=== PATIENT | female | born 1990 | race African-American/Black ===

== ENCOUNTER 2021-08-02 07:30 | Inpatient (IN) | payer OTHER ==
--- NOTE | 2021-07-25 12:12 | HPE ---
HISTORY AND PHYSICAL DATE OF ADMISSION: 08/07/2021 HISTORY OF PRESENT ILLNESS: This patient is a 30-year-old 2 para 1 admitted for elective repeat section with low-lying placenta on August 07, 2021. PAST HISTORY: She had a section at 40 plus 3 weeks of gestation, arrest of decent, livebirth female , 7 pounds, 14 ounces. She presently has had ongoing ultrasounds to evaluate the extent of the low-lying placenta and as of 36 weeks the margin on the os is 1.2 cm. Therefore, it was elected to go ahead and repeat the section. Her LMP was November 12, 2020, her EDC is August 13, 2021 by early dating ultrasound from January 09, 2021 at 8 weeks and 2 days. Her risk factors are: Repeat section and low-lying placenta. PHYSICAL EXAMINATION: On examination today, she is normocephalic, atraumatic. Neck: Full range of motion. Pupils equal and reactive to light. Distal pulses are symmetric. No evidence of DVT, PE or superficial phlebitis. Chest is clear bilaterally to bases. No wheezes or rhonchi. No CVA tenderness. Abdomen is soft, four quadrant bowel sounds are noted. Symphysis fundus height is appropriate. Low-transverse scar is not painful. No rashes, lesions or pruritus. No arthralgias or myalgias. No complaint of joint pain, no complaint of cough, wheeze, shortness of breath or dyspnea on exertion. No nausea, vomiting, diarrhea, or constipation. No urgency or frequency. Her blood pressure today is 113/59, respirations were 18, pulse is 72, her height is 67 cm, and her weight is 173 pounds. We discussed the risks and benefits of section including hemorrhage, infection, perforation, , re-operation, the risk of remote blood transfusion, remote hysterectomy for life-threatening bleeding issues, the risk of perforation of organs on entry secondary to adhesions. admission to NICU for observation. Patient expressed understanding of same, all questions were answered, a 20 minute discussion, plus 20 minute evaluation. Patient is going to get a note for her in order to assist her at home. She will mushroom picker her meds at [facility], have a COVID test prior to coming to the hospital. Expressed an understanding of same and went to mushroom picker the medications. Patient is booked for August 07, 2021. cc: Izaiah [facility]
[~2021-08-02] VITALS: Ht 170.2 cm; Wt 77.2 kg
[~2021-08-02 07:30] MED LIST: FERR325T81 PO; PRENTAB53 PO
[2021-08-07] VITALS (8 sets, daily range): BP systolic 102–125; BP diastolic 52–62
[2021-08-07] MEDS ORDERED: OXYTOCIN INJ 10 UNITS/ML VIAL (J2590) IV PRN (07:20)
[2021-08-07] MEDS ORDERED: METHYLERGONOVINE MALEATE 0.2 MG/ML VIAL (J2210) IM PRN (07:20)
[2021-08-07] MEDS ORDERED: LR 1,000 ML IV SCH ×3 (07:40→13:40)
[2021-08-07] MEDS ORDERED: ceFAZolin SOD 2 GM in IV 1 EA IV ONE (07:40)
[2021-08-07] MEDS ORDERED: BUPIVACAINE HCL 0.25% 10ML VIAL SC ONE (07:45)
[2021-08-07] MEDS ORDERED: AZITHROMYCIN INJ 500 MG, VIAL MATE ADAPTER 1 EACH in NS 250 ML IV SCH (07:45)
[2021-08-07] MEDS ORDERED: BICITRA 30ML SOLN UDC PO ONE (07:45)
[2021-08-07] MEDS ORDERED: HOME MED LIST COMPLETE! XX SCH (07:50)
[2021-08-07 08:27] LABS: HEMATOCRIT 30.7 % (36.0-47.0); HEMOGLOBIN 9.3 g/dl (12.0-15.5); MEAN CORPUSCULAR HEMOGLOBIN 26.7 pg (27.0-33.0); MEAN CORPUSCULAR HGB CONC 30.3 g/dl (32.0-36.5); MEAN CORPUSCULAR VOLUME 88.2 fl (80.0-96.0); PLATELET COUNT, AUTOMATED 278 10^3/uL (150-450); RED BLOOD COUNT 3.48 10^6/uL (4.00-5.40); WHITE BLOOD COUNT 5.5 10^3/uL (4.0-10.0)
[2021-08-07] MEDS: PRENATAL VITAMINS CHEWABLE TABLET PO SCH (09:00)
[2021-08-07] MEDS ORDERED: ACETAMINOPHEN 650 MG SUPP PR ONE (09:15)
[2021-08-07] MEDS ORDERED: MORPHINE PRES-FREE INJ 10 MG/10 ML VIAL (J2274) As Ordered ONE (09:37)
[2021-08-07] MEDS ORDERED: OXYTOCIN 30 UNITS IN 0.9% NaCl 500ML IV BAG (J2590) As Ordered ONE ×2 (09:38→12:35)
[2021-08-07] MEDS ORDERED: NALOXONE INJ 0.4MG/1ML VIAL (J2310 PER 1MG) IV PRN ×2 (10:29)
[2021-08-07] MEDS ORDERED: NALBUPHINE HCL 10 MG/ML AMP (J2300) IV PRN (10:29)
[2021-08-07] MEDS ORDERED: METOCLOPRAMIDE INJ 10MG/2ML VIAL (J2765 PER 1) IV PRN ×2 (10:29→13:40)
[2021-08-07] MEDS ORDERED: ONDANSETRON 4MG/2ML VIAL IV PRN ×2 (10:29→13:40)
[2021-08-07] MEDS ORDERED: diphenhydrAMINE 50MG/ML VIAL (J1200) IV PRN (10:29)
[2021-08-07] MEDS ORDERED: PHENYLephrine 500MCG 5ML (100MCG/ML) SYRINGE As Ordered ONE (10:53)
[2021-08-07] MEDS ORDERED: dexameTHASONE 4 MG/ML 1ML VIAL (J1100 PER 1MG) As Ordered ONE (10:53)
[2021-08-07] MEDS ORDERED: ONDANSETRON 4MG/2ML VIAL As Ordered ONE (10:53)
[2021-08-07] MEDS ORDERED: ePHEDrine SULFATE 25 MG/5 ML(5MG/ML) SYRINGE As Ordered ONE (10:53)
[2021-08-07] MEDS ORDERED: OXYTOCIN INJ 10 UNITS/ML VIAL (J2590) As Ordered ONE ×3 (11:18→11:26)
[2021-08-07 11:23] LABS: CORD GAS ABE A -7.1; CORD GAS HCO3 A 23.3 MEQ/L; CORD GAS PCO2 A 69.9 mmHg; CORD GAS PH A 7.14 UNITS; CORD GAS SBC A 17.5 MEQ/L; CORD GAS TCO2 A 25.4 MEQ/L
[2021-08-07 11:24] LABS: CORD GAS ABE V -5.8; CORD GAS HCO3 V 22.3 MEQ/L; CORD GAS O2 SAT V 53.2 %; CORD GAS PCO2 V 53.9 mmHg; CORD GAS PH V 7.235 UNITS; CORD GAS PO2 V 25.3 mmHg; CORD GAS SBC V 18.8 MEQ/L
[2021-08-07] MEDS ORDERED: fentaNYL 100 MCG/2 ML INJECTION (J3010) As Ordered ONE ×2 (12:00→13:14)
[2021-08-07] MEDS ORDERED: diphenhydrAMINE 50MG/ML VIAL (J1200) As Ordered ONE (12:14)
[2021-08-07] MEDS ORDERED: PERCOCET 5MG/325MG TAB PO PRN ×3 (12:20→13:40)
[2021-08-07] MEDS ORDERED: IBUPROFEN 800 MG TAB PO PRN (12:20)
[2021-08-07] MEDS ORDERED: MOM 30ML SUSPENSION UDC PO PRN (12:20)
[2021-08-07] MEDS ORDERED: ANUSOL HC CREAM 30GM TOP PRN (12:20)
[2021-08-07] MEDS ORDERED: RHOGAM 300 MCG (1500 IU) INJ (J2790) IM SCH (12:20)
[2021-08-07] MEDS ORDERED: METHYLERGONOVINE MALEATE 0.2 MG TAB PO PRN (12:20)
[2021-08-07] MEDS ORDERED: ACETAMINOPHEN TAB 650MG DOSE (2X325MG) PO PRN (12:20)
[2021-08-07] MEDS ORDERED: DOCUSATE SODIUM 100MG CAPSULE PO PRN (12:20)
[2021-08-07] MEDS ORDERED: MEASLES,MUMPS,RUBELLA VACCINE INJ (MMR-II) (90707) SC SCH (12:20)
[2021-08-07] MEDS ORDERED: ACETAMINOPHEN 500 MG TAB PO PRN (12:20)
[2021-08-07] MEDS: fentaNYL 100 MCG/2 ML INJECTION (J3010) IV PRN ×2 (13:18→13:25)
[2021-08-07] MEDS ORDERED: OXYTOCIN DRIP 30 UNITS in IV 1 EA IV ONE (14:00)
[2021-08-08 02:39] VITALS: BP 116/53
[2021-08-08 06:41] VITALS: BP 106/60
--- NOTE | 2021-08-08 06:47 | IPNPDOC ---
Progress Note Date of Service: Aug 08, 2021 Progress Note Yung is a 30 yo G2 now P2 who underwent an uncomplicated, planned RLTCS yesterday. Overnight she did well and had no issues. She reports feeling well today. She has been ambulatory and is tolerating a regular diet. Pain is well controlled. Lochia is minimal. She is voiding on her own without issues. Vitals - VSS, afebrile, normotensive, nontachycardic General - AAOX3, sitting up in bed, NAD Abdomen - Fundus firm at U-2. No fundal tenderness. Dressing in place in over incision. Appropriate appearing. Abdomen with no tenderness to palpation. Extremities - No edema UO - appropriate Labs: Pre op H/H 9.3/30.7 ---> Pending CBC this AM Yung is doing well and is making an appropriate postoperative / recovery. Follow up AM CBC. Continue routine postoperative / care. Anticipate DC home tomorrow if meeting all criteria. Anmol VS, I&O, 24H, bone Vital Signs/I&O Vital Signs Date Time Temp Pulse Resp B/P (MAP) Pulse Ox O2 Delivery O2 Flow Rate FiO2 08/08/21 06:41 98.4 73 18 106/60 (75) 100 Room Air I&O- Last 24 Hours up to 6 AM 08/08/21 06:00 Intake Total 3590 ml Output Total 2095 ml Balance 1495 ml Laboratory Data 24H LABS Laboratory Tests 2 08/07/21 08:02: Nucleated Red Blood Cells % (auto) 0.0, Syphilis Serology NONREACTIVE 08/07/21 10:44: Cord Arterial Blood pH 7.140, Cord Arterial Blood PCO2 69.9, Cord Arterial Blood PO2 21.0, Cord Arterial Blood HCO3 23.3, Cord Arterial Blood Total CO2 25.4, Cord Arterial Blood Base Excess -7.1, Cord Arterial Base Excess (Standard 17.5, Cord Arterial Bld Oxygen Saturation 39.0, Cord Venous Blood pH 7.235, Cord Venous Blood PCO2 53.9, Cord Venous Blood PO2 25.3, Cord Venous Blood HCO3 22.3, Cord Venous Blood Total CO2 24.0, Cord Venous Base Excess (Actual) -5.8, Cord Venous Base Excess (Standard) 18.8, Cord Venous Blood Oxygen Saturation 53.2 CBC/BMP Laboratory Tests 08/07/21 08:02 MENDY LEYVA DO Aug 08, 2021 06:47
[2021-08-08 08:38] LABS: HEMATOCRIT 28.3 % (36.0-47.0); HEMOGLOBIN 8.5 g/dl (12.0-15.5); MEAN CORPUSCULAR HEMOGLOBIN 26.7 pg (27.0-33.0); PLATELET COUNT, AUTOMATED 252 10^3/uL (150-450); RED BLOOD COUNT 3.18 10^6/uL (4.00-5.40); WHITE BLOOD COUNT 12.2 10^3/uL (4.0-10.0)
[2021-08-08] MEDS ORDERED: INFLUENZA QUADRIVALENT PF VACCINE 0.5ML SYRINGE IM ONE (09:00)
[2021-08-08] MEDS: PRENATAL VITAMINS CHEWABLE TABLET PO SCH (09:21)
[2021-08-08 10:07] VITALS: BP 112/55
[2021-08-08] MEDS: SIMETHICONE 80MG CHEW TAB PO PRN ×2 (12:28→22:45)
[2021-08-08 14:15] VITALS: BP 108/58
[2021-08-08] MEDS ORDERED: IBUPROFEN 800 MG TAB PO SCH (14:20)
[2021-08-08 18:13] VITALS: BP 101/54
[2021-08-08 22:00] VITALS: BP 117/57
[2021-08-08] MEDS: IBUPROFEN 600MG TAB PO PRN (22:46)
[2021-08-09 02:00] VITALS: BP 106/55
[2021-08-09] MEDS: IBUPROFEN 600MG TAB PO PRN (05:49)
[2021-08-09] MEDS: SIMETHICONE 80MG CHEW TAB PO PRN (05:49)
[2021-08-09 06:00] VITALS: BP 123/58
[2021-08-09] MEDS ORDERED: IBUP-1022 PO (07:03)
[2021-08-09] MEDS ORDERED: PERCOCET PO (07:03)
[2021-08-09] MEDS ORDERED: COLA100C5 PO (07:03)
[2021-08-09] MEDS ORDERED: PRENCHW PO (07:03)
[2021-08-09] MEDS: PRENATAL VITAMINS CHEWABLE TABLET PO SCH (09:00)
[2021-08-09 10:00] VITALS: BP 125/61
--- NOTE | 2021-08-09 10:27 | RO ---
OPERATIVE NOTE DATE OF OPERATION: 08/07/2021 PREOPERATIVE DIAGNOSES: Repeat section, low lying placenta. POSTOPERATIVE DIAGNOSES: Repeat section, low lying placenta, fixed uterus anterior right side of uterus, left tube fixed to the uterine wall. OPERATION PERFORMED: SURGEON: Otf Arceo MD PILLOW AGENT: Pia ___, DOUGIE for extraction, retraction, visualization without which the procedure could not be completed. ANESTHESIA: Spinal plus local anesthetic for intraperitoneal procedures. ESTIMATED BLOOD LOSS: 1000 mL. DESCRIPTION OF PROCEDURE: After adequate time out, prepped and draped in supine position, Mallory catheter in the bladder draining clear urine. Acetaminophen suppository 1300 mg per rectum, sequentials in place, antibiotics appropriate. A Pfannenstiel incision was made through the previous abdominal and Pfannenstiel incisions, passing through abdominal layers, securing hemostasis. Attempting to open the peritoneal cavity we were met with adhesions of the anterior wall of the uterus fixed to the anterior underside of the incisional site. The right side of the uterus was fixed to the right sidewall of the pelvis and the left tube was fixated to the midportion of the uterus. We attempted to take all that down and placed the Mobius in place. However, because of the fixation on the right side we could not exactly keep the Mobius in place. Therefore, we removed it in order to be able to continue with the procedure. A low transverse incision was made into the uterus. Oligohydramnios was noted and we attempted to deliver a livebirth infant. However, we were not able to extract manually the head because of the fixation on the right side of the pelvis and the uterus. We attempted to shoehorn the baby out with one blade of the Jeronimo-Lory's and that was not successful and we did two pop-offs with the mini vac and successfully delivered a livebirth female weighing 6 pounds 13 ounces, 3090 gm, Apgars 8 and 9 at one and five minutes respectively. Arterial pH 7.14, base excess -7.1, venous pH 7.23 and base excess -5.8. The placenta was manually removed, three vessels in the cord. Membranes and tissues intact. The tip of the placenta was into the lower segment and into the internal and external os. The uterus contracted well then under Pitocin. The lower segment was repaired in the usual fashion and on the right side we had to do repair where we took down the anterior abdominal wall to the right side of the pelvis. We had some difficulty with hemostasis. However, we did secure that and put some Surgicel in that place. With instrument and pad count correct the peritoneum was closed, running stitch for the fascia, 3-0 Dexon for skin. Again, uterus was well contracted down but was fixed to the right side of the pelvis. The patient tolerated the procedure well. cc: Izaiah [facility]brook OB
--- NOTE | 2021-08-09 13:24 | DSES ---
DISCHARGE SUMMARY DATE OF ADMISSION: 08/07/2021 DATE OF DISCHARGE: 08/09/2021 BRIEF HISTORY: This lady is a 30-year-old 2 now para 2, admitted for repeat section and low-lying placenta. She had massive adhesions especially to the anterior abdominal wall and to the right side of the pelvis making delivery difficult. Delivered a livebirth female , 6 pounds, 13 ounces, Apgars of 8 and 9 at 1 and 5 minutes respectively. Arterial pH 7.14, base excess -7.1, venous pH 7.73, base excess -5.8. The baby was in the NICU for observation status because of the initiation of a use of a vacuum. On her second day we discussed phlebitis, cystitis, mastitis, endometritis, and cellulitis, diet, exercise, pain management, perineal, breast and wound care. PHYSICAL EXAMINATION: The rest of the examination was unremarkable. Normocephalic, atraumatic. Neck with full range of motion. Pupils equal and reactive to light. Distal pulses are symmetric. No evidence of DVT, PE or superficial phlebitis. Chest is clear bilaterally at bases. No wheezes or rhonchi. No CVA tenderness. Abdomen is soft, four quadrant bowel sounds are noted. The incision is clean and dry. The uterus is two below. No urgency or frequency. No nausea, vomiting, diarrhea or constipation. Blood pressure is 123/58, respirations are 17, pulse is 72, temperature is 98.2. Admitting hemoglobin was 9.3, hematocrit was 30.7 and platelets were 278,000, her discharge hemoglobin was 8.5, hematocrit 28.3 and platelets are 252,000 and she is asymptomatic. Patient has a two week incision check and a six week check at [facility]. Medications are dispensed at [facility]. All questions were answered, a 20 minute discussion. Patient was discharged improved. cc: [facility]
== END 2021-08-09 12:20 | disposition home or self-care (01) | DRG 772 ==
LOC: M LDI 08-07 07:09 → M OBS 08-07 14:27
PROVIDERS: ADMIT Obstetrics & Gynecology; ATTEND Obstetrics & Gynecology
PROC: 10D00Z1 Extraction of Products of Conception, Low, Open Approach (ICD-10-PCS; principal; 2021-08-07 09:30)
DX: O34.211 Maternal care for low transverse scar from previous cesarean delivery (principal); O41.03X0 Oligohydramnios, third trimester, not applicable or unspecified; Z3A.38 38 weeks gestation of pregnancy; Z37.0 Single live birth

== ENCOUNTER → 2022-01-01 | Outpatient (REF) | payer OTHER ==
[~2022-01-01] MED LIST changes: +COLA100C5 PO; +IBUP-1022 PO; +PERCOCET PO; +PRENCHW PO
[2022-01-01 17:31] LABS: GC DNA AMPLIFICATION POSITIVE (NEGATIVE)
== END ==
LOC: M LAB REF 15:21
PROVIDERS: ATTEND Physician Assistant
DX: R30.0 Dysuria (principal)

== ENCOUNTER → 2022-05-13 | Outpatient (REF) | payer OTHER ==
[2022-05-14 12:22] LABS: GC DNA AMPLIFICATION POSITIVE (NEGATIVE)
== END ==
LOC: M WUC 09:22
PROVIDERS: ATTEND Physician Assistant
DX: Z20.2 Contact with and (suspected) exposure to infections with a predominantly sexual mode of transmission (principal); R30.0 Dysuria